=== PATIENT | male | born 1980 | race Caucasian/White ===

== ENCOUNTER 2022-01-12 02:40 | Emergency (ER) | payer BC, SELFPAY ==
[2022-01-12 02:48] VITALS: BP 152/87; PULSE 87; RESP 16; TEMP 36.8; O2SAT 99
--- NOTE | 2022-01-12 04:28 | ED.EXTPRO ---
HPI - Extremity Problem General Chief complaint: Extremity Problem,Nontraumatic Stated complaint: right leg swelling Time Seen by Provider: 01/12/22 04:00 History of Present Illness HPI Narrative: Patient states that his right lower extremity has been slightly swollen for the last few days, he is also endorsing some pain, he went to see a chiropractor think it was a muscle pain but this does not not improve, no history of blood clots personally or family. Related Data Allergies Allergy/AdvReac Type Severity Reaction Status Date / Time acetaminophen Allergy Mild Verified 12/14/08 14:27 hydrocodone Allergy Mild Verified 12/14/08 14:27 No Known Allergies Allergy Mild Verified 01/10/08 00:01 Review of Systems Review of Systems: CONST: No fever. HEENT: No sore throat C/V: No chest pain RESP: No difficulty breathing GI: No abdominal pain : No dysuria. M/S: RLE swelling/pain SKIN: No rash. NEURO: [No focal numbness or weakness] PSYCH: [No depression] FOR[facility], LAT[facility] Past Medical History Medical History (Updated 01/12/22 @ 05:36 by Shruti Perkins MD) No active medical problems Exam Narrative: EXAMINATION OF ORGAN SYSTEMS/BODY AREAS: Constitutional: Vital signs per nursing GENERAL:[No acute distress, non-toxic appearing.] HEAD: Normal with no signs of head trauma. EYES: EOMI, conjunctiva normal ENT: Hearing grossly intact LUNGS: Nonlabored breathing. HEART: [Regular rate and rhythm] ABD: Nondistended EXT: Normal range of motion, swelling of RLE compared to LLE SKIN: No rash NEURO: [Alert and oriented x 3. No gross focal sensory or strength deficits.] PSYCH: Normal affect Course Course Emergency Course: 41-year-old male presenting with right lower extremity edema compared to the left and some pain, vital signs stable, exam shows swelling in the right lower extremity, ddx includes DVT, doubt cellulitis without rash or fever, he will be given Lovenox as ultrasound is not available overnight and will follow up in the morning for ultrasound, prescriptions given for this, stable for discharge home until return in the morning. Vital Signs Vital signs: Vital Signs Temperature 98.2 F 01/12/22 02:48 Pulse Rate 87 01/12/22 02:48 Respiratory Rate 16 01/12/22 02:48 Blood Pressure 152/87 H 01/12/22 02:48 Pulse Oximetry 99 01/12/22 02:48 Temperature 98.2 F 01/12/22 02:48 Pulse Rate 78 01/12/22 05:02 Respiratory Rate 20 01/12/22 05:02 Blood Pressure 123/81 01/12/22 05:02 Pulse Oximetry 98 01/12/22 05:02 Discharge Plan Discharge Clinical Impression: Lower extremity edema Patient Disposition: Home, Self-Care Condition: Stable Instructions: Antibiotic Form, Leg Edema (ED) Additional Instructions: Please come back in the morning for ultrasound for rule out DVT. Follow-up/Referrals: Gray,Rachel Neff MD [Primary Care Provider] -
[2022-01-12 05:02] VITALS: BP 123/81; PULSE 78; RESP 20; O2SAT 98
[2022-01-12] MEDS: ENOXAPARIN 120 MG/0.8 ML SYRINGE SUB-Q (05:03)
== END 2022-01-12 05:05 | disposition home or self-care (01) ==
PROVIDERS: Emergency Provider Emergency Medicine; PCP Family Medicine
DX: R60.0 Localized edema (principal)
CPT/HCPCS: 96372; 99283; J1650

== ENCOUNTER 2022-01-12 07:45 | Outpatient (CLI) | payer BC, SELFPAY ==
--- NOTE | ~2022-01-12 | US_ITS ---
US venous doppler LE RT DATE: 01/12/2022 08:43 INDICATION: Deep venous thrombosis TECHNIQUE: Real-time and color flow imaging and Doppler analysis of the veins of the right lower extr emity COMPARISON: None FINDINGS: The right greater saphenous vein and common femoral vein are patent. There is lack of compression of the distal femoral and popliteal and peroneal veins, consistent with deep venous thrombosis. Posterior tibial veins are patent. IMPRESSION: Deep venous thrombosis of distal femoral, popliteal and peroneal veins Dr. Anand telephoned the report of right lower extremity venous thrombosis on 01/12/[address] Castellano's answering service. Dr. Castellano returned the phone call and was given the results at 0909 hours. Reviewed, dictated and finalized at [facility]. Reviewed, dictated and finalized at [facility]. IMPRESSION: Deep venous thrombosis of distal femoral, popliteal and peroneal ve ins Dr. Anand telephoned the report of right lower extremity venous thrombosis on at [address] Castellano's answering service[address] Dr. Castellano retur angelina the phone call and was given the results at 0909 hours.
== END 2022-01-12 07:46 | disposition home or self-care (01) ==
LOC: ANHIMG 07:47
PROVIDERS: PCP Family Medicine; Visit Provider Family Medicine
DX: I82.411 Acute embolism and thrombosis of right femoral vein (principal); I82.431 Acute embolism and thrombosis of right popliteal vein; I82.451 Acute embolism and thrombosis of right peroneal vein
CPT/HCPCS: 93971